=== PATIENT | female | born 1945 | race Caucasian/White ===

== ENCOUNTER 2023-08-06 09:11 | Emergency (ER) | payer OTHER ==
[~2023-08-06] VITALS: Ht 121.9 cm; Wt 45.4 kg
[2023-08-06] MEDS ORDERED: GLUMETZA1000 MG PO (09:26)
[2023-08-06] MEDS ORDERED: ALENDRONATE SOD70 MG PO (09:26)
[2023-08-06] MEDS ORDERED: ZESTRIL40 M1 PO (09:26)
[2023-08-06] MEDS ORDERED: ATORVASTATIN CA20 MG PO (09:26)
== END 2023-08-06 13:40 | disposition home or self-care (01) ==
LOC: ER 09:11
DX: S49.82XA Other specified injuries of left shoulder and upper arm, initial encounter (principal); W18.39XA Other fall on same level, initial encounter; Y93.89 Activity, other specified; Y92.018 Other place in single-family (private) house as the place of occurrence of the external cause; E78.00 Pure hypercholesterolemia, unspecified; I10 Essential (primary) hypertension
CPT/HCPCS: 73030; 73060; 96372; 99284; J1885